=== PATIENT | female | born 1950 | race Two or more races ===

== ENCOUNTER → 2024-09-18 | Outpatient (CLI) | payer MEDICARE, MEDICAID, SELFPAY ==
--- NOTE | 2024-09-18 08:28 | XR_ITS ---
Examination: Shoulder,left, 3 views Technique: Shoulder AP internal rotation, AP external rotation, Y view shoulder, 3 views Exam date and time :September 18, 2023 at 0833 hours Comparison July 29, 2024 INDICATIONS: History acute fracture left humeral head and neck 05/18/2024 FINDINGS: Healed fractures proximal humerus Moderate osteoarthritis glenohumeral joint No acute fracture No AC joint separation IMPRESSION: Healed fractures left humeral head and neck Moderate osteoarthritis glenohumeral joint
== END | disposition home or self-care (01) ==
LOC: COPL 07:57 → CDIM 10-10 12:06
PROVIDERS: PCP Family Medicine; Referring Provider Orthopaedic Surgery; Visit Provider Orthopaedic Surgery
DX: M19.012 Primary osteoarthritis, left shoulder (principal)
CPT/HCPCS: 73030